=== PATIENT | female | born 1990 | race African-American/Black ===

== ENCOUNTER 2016-08-09 09:51 | Emergency (ER) | payer MEDICAID ==
[~2016-08-09] VITALS: Ht 154.9 cm; Wt 82.0 kg
[~2016-08-09 09:51] MED LIST: AMLO5TAB22 PO; LABE100 PO; MIREIUD IU; NAPR-576 PO
[2016-08-09 09:53] VITALS: BP 144/74; PULSE 91; RESP 15; TEMP 98.8; O2SAT 98
--- NOTE | 2016-08-09 10:05 | PD ---
HPI Chief Complaint: Cold / Flu Symptoms Time Seen by Provider: 10:05 Travel History International Travel<30 days: No Contact w/Intl Traveler<30days: No Traveled to known affect area: No History of Present Illness HPI 25-year-old Afro-[place] female coming in with sudden onset fever of 102 last evening headache, sore throat, ear pain, congestion, and generalized muscle aches and pains. Patient has some nausea but no vomiting. No diarrhea. Patient has no significant shortness of breath or chest pain. Patient has been taking Tylenol with improvement of her temperature but overall feels worse today than yesterday. Patient has no one sick in the home. Patient has no allergies to medications. She is allergic to bananas. PFSH Past Medical History Cancer: No Cardiovascular Problems: Yes (HTN) Diminished Hearing: No Endocrine: No Gastrointestinal Disorders: No Genitourinary: No Hypertension: Yes (PRE-ECLAMPSIA) Immune Disorder: No Neurologic: No Psychiatric: No Reproductive: No Respiratory: No ?: Not LMP: 08/09/16 : 3 Para: 2 Miscarriage: 1 Past Surgical History Section: Yes (2) Gynecologic Surgery: Yes (2 C-SECTIONS) Other Surgery: Yes Social History Alcohol Use: No Tobacco Use: No (QUIT 10/2014) Substance Use: No Allergies-Medications (Allergen,Severity, Reaction): Uncoded Allergies: bananas (Allergy, Mild, 11/06/14) Reported Meds & Prescriptions Reported Meds & Active Scripts Active Tamiflu (Oseltamivir Phosphate) 75 Mg Cap 75 Mg PO BID 5 Days Review of Systems Except as stated in HPI: all other systems reviewed are Neg General / Constitutional: Positive: Fever, Chills Eyes: No: Visual changes HENT: Positive: Headaches, Sore Throat, Rhinitis, Rhinorrhea, Congestion, Earache, No: Vertigo, Lightheadedness, Neck Stiffness, Neck Pain, Ear Discharge Cardiovascular: No: Chest Pain or Discomfort Respiratory: Positive: Cough, No: Shortness of Breath, Wheezing, Sneezing, Orthopnea, Pleuritic Pain Gastrointestinal: Positive: Nausea, Loss of Appetite, No: Vomiting, Diarrhea, Abdominal Pain Genitourinary: No: Urgency, Frequency, Dysuria, Nocturia, Hematuria Musculoskeletal: No: Pain Skin: No Rash Neurologic: No: Weakness Psychiatric: No: Depression Endocrine: No: Polydipsia Hematologic/Lymphatic: No: Easy Bruising Physical Exam Narrative GENERAL: Patient appears ill but not septic. SKIN: Warm and dry. Normal color. Normal turgor. Mild diaphoresis noted. HEAD: Atraumatic. Normocephalic. EYES: Pupils equal and round. No scleral icterus. No injection or drainage. ENT: No nasal bleeding or discharge. Mucous membranes pink and moist. TMs are clear bilaterally. No sinus tenderness. NECK: Trachea midline. No JVD. CARDIOVASCULAR: Regular rate and rhythm. RESPIRATORY: No accessory muscle use. Clear to auscultation. Breath sounds equal bilaterally. GASTROINTESTINAL: Abdomen soft, non-tender, nondistended. Hepatic and splenic margins not palpable. MUSCULOSKELETAL: Extremities without clubbing, cyanosis, or edema. No obvious deformities. NEUROLOGICAL: Awake and alert. No obvious cranial nerve deficits. Motor grossly within normal limits. Five out of 5 muscle strength in the arms and legs. Normal speech. PSYCHIATRIC: Appropriate mood and affect; insight and judgment normal. Data Data Last Documented VS Vital Signs Date Time Temp Pulse Resp B/P Pulse Ox O2 Delivery O2 Flow Rate FiO2 08/09/16 09:53 98.8 91 15 144/74 98 Orders Group A Rapid Strep Screen (08/09/16 10:11) Influenzae A/B Antigen (08/09/16 10:11) Strep Culture (Group A) (08/09/16 10:15) MDM Medical Decision Making Medical Screen Exam Complete: Yes Emergency Medical Condition: Yes Differential Diagnosis Strep pharyngitis. Upper respiratory infection. Viral illness. Influenza. Narrative Course Patient is medically stable at time of exam. Rapid strep was sent to the lab. Influenza test is sent to the lab. Rapid strep is negative. Patient is positive for influenza A. Patient is given a prescription for Tamiflu 75 mg twice a day 5 days. Patient is given a prescription for Tylenol and ibuprofen as well. Patient is given a prescription for Zofran for nausea. Patient is given a work note for the next 5 days off or until fever free. Patient should follow with her primary care physician or return to emergency Department with worsening symptoms as needed. Diagnosis Primary Impression: Influenza A (H1N1) Referrals: Primary Care Physician Patient Instructions: General Instructions, H1N1 Influenza (ED) Departure Forms: Work Release Enter return to work date: Aug 14, 2016 Special Instructions: No work until fever free due to positive influenza test. Additional Instructions: Rapid strep is negative. Patient is positive for influenza A. Patient is given a prescription for Tamiflu 75 mg twice a day 5 days. Patient is given a prescription for Tylenol and ibuprofen as well. Patient is given a prescription for Zofran for nausea. Patient is given a work note for the next 5 days off or until fever free. Patient should follow with her primary care physician or return to emergency Department with worsening symptoms as needed. Med/Other Pt SpecificInfo: Prescription(s) given Scripts Oseltamivir (Tamiflu)75 Mg Cap75 Mg PO BID 5 Days Ref 0 Prov:Fernanda Mariscal DO 08/09/16 Disposition: 01 DISCHARGE HOME Condition: Stable Tio Rushing Aug 09, 2016 10:05
[2016-08-09] MEDS ORDERED: OSEL75 PO (11:01)
[2016-08-09] MEDS ORDERED: IBUP-232 PO (11:09)
[2016-08-09] MEDS ORDERED: ZOFR4TAB PO (11:09)
[2016-08-09] MEDS ORDERED: EXTR500C PO (11:09)
== END 2016-08-09 11:32 | disposition home or self-care (01) ==
LOC: NEPB 09:51
DX: J10.1 Influenza due to other identified influenza virus with other respiratory manifestations (principal)
CPT/HCPCS: 87081; 87804; 87880; 99283

== ENCOUNTER 2017-01-31 13:29 | Emergency (ER) | payer MEDICAID ==
[~2017-01-31] VITALS: Ht 154.9 cm; Wt 75.0 kg
[~2017-01-31 13:29] MED LIST changes: -AMLO5TAB22 PO; +EXTR500C PO; +IBUP-232 PO; -LABE100 PO; -MIREIUD IU; -NAPR-576 PO; +OSEL75 PO; +ZOFR4TAB PO
[2017-01-31 13:31] VITALS: BP 136/88; PULSE 114; RESP 18; TEMP 98.9; O2SAT 100
--- NOTE | 2017-01-31 13:48 | PD ---
Physical Exam Date Seen by Provider: Jan 31, 2017 Time Seen by Provider: 13:44 Narrative 26 yo female here for RLQ pain. Has had this for a few days. No chest pain or SOB. Pain is cramping. Vaginal discharge noted per patient. Vitals are stable in triage. Awaiting bed placement. Data Data Last Documented VS Vital Signs Date Time Temp Pulse Resp B/P Pulse Ox O2 Delivery O2 Flow Rate FiO2 01/31/17 13:31 98.9 114 18 136/88 100 MDM Medical Record Reviewed: Yes Supervised Visit with PETROS: Michael Andrews Jan 31, 2017 13:48
[2017-01-31] MEDS ORDERED: KETOROLAC TROMETHAMINE 30 MG/ML (IVP) VIAL IV PUSH ONE (14:30)
[2017-01-31 15:26] LABS: AUTOMATED NEUTROPHIL # 2.2 TH/MM3 (1.8-7.7); BASOPHIL % 0.7 % (0.0-2.0); EOSINOPHIL % 0.9 % (0.0-4.0); HEMO FLAGS DIFF FINAL; LYMPH % 50.6 % (9.0-44.0); LYMPHOCYTE # 2.6 TH/MM3 (1.0-4.8); MEAN CELL VOLUME 89.7 FL (80.0-100.0); MEAN CORPUSCULAR HEMOGLOBIN 30.9 PG (27.0-34.0); MEAN CORPUSCULAR HGB CONC 34.4 % (32.0-36.0); NEUT % 41.8 % (16.0-70.0); PLATELET COUNT 297 TH/MM3 (150-450); RED BLOOD COUNT 4.68 MIL/MM3 (4.00-5.30); RED CELL DISTRIBUTION WIDTH 13.4 % (11.6-17.2); WHITE BLOOD COUNT 5.2 TH/MM3 (4.0-11.0)
--- NOTE | 2017-01-31 15:41 | RADRPT ---
EXAM DATE/TIME: 01/31/2017 14:22 [facility] COMPARISON: No previous studies available for comparison. INDICATIONS : Right pelvic pain. MEDICAL HISTORY : Hypertension. SURGICAL HISTORY : section. ENCOUNTER: Subsequent ACUITY: 4-6 months PAIN SCORE: 4/10 LOCATION: Bilateral pelvis MEASUREMENTS: UTERUS: 11.0 x 5.4 x 5.1 cm ENDOMETRIAL STRIPE: 10 mm RIGHT OVARY: 4.7 x 4.2 x 3.6 cm LEFT OVARY: 4.0 x 2.5 x 1.8 cm FINDINGS: There is a right ovarian cyst measuring 3.5 x 3.3 x 2.4 cm. There is some free fluid within the cul-d e-sac. The left ovary is unremarkable. An intrauterine device is noted within the endometrial cavity. Nabothian cysts are noted. CONCLUSION: 3.5 cm right ovarian cyst. Some free fluid within the cul-de-sac. IUD appears to be i n position within the endometrium. Ricardo Tuttle MD on January 31, 2017 at 15:37 Board Certified Radiologist. This report was verified electronically.
[2017-01-31 15:50] LABS: ANION GAP 8 MEQ/L (5-15); AST (GOT) 14 U/L (15-37); BICARBONATE 26.3 MEQ/L (21.0-32.0); BLOOD UREA NITROGEN 10 MG/DL (7-18); CHLORIDE 106 MEQ/L (98-107); GLOMERULAR FILTRATION RATE 87 ML/MIN (>89); POTASSIUM 3.4 MEQ/L (3.5-5.1); SODIUM (NA) 140 MEQ/L (136-145)
[2017-01-31 16:00] LABS: ALKALINE PHOSPHATASE 75 U/L (45-117); ALT (GPT) 19 U/L (10-53); TOTAL BILIRUBIN ADULT 0.5 MG/DL (0.2-1.0)
[2017-01-31 16:12] LABS: BLOOD, URINE NEG (NEG); COMMENT (UR) CULT NOT INDICATED; CULTURE IF INDICATED CULT NOT INDICATED; GLUCOSE,URINE NEG (NEG); KETONE, URINE NEG (NEG); MUCUS URINE FEW /lpf (OCC); NITRITE,URINE NEG (NEG); PH, URINE 7.5 (5.0-8.5); SQUAMOUS EPITHELIAL CELL URINE 2 /hpf (0-5); URINE COLOR YELLOW (YELLW/STRAW)
[2017-01-31] MEDS ORDERED: cefTRIAXone 250 MG VIAL IM ONE (16:15)
[2017-01-31] MEDS ORDERED: LIDOCAINE HCL 1% 50 ML VIAL IM ONE (16:15)
[2017-01-31] MEDS ORDERED: AZITHROMYCIN PWD FOR SUSP 1 GM PACKET PO ONE (16:15)
[2017-01-31] MEDS ORDERED: NAPR500T PO (16:45)
[2017-01-31] MEDS ORDERED: DOXY100C PO (16:45)
--- NOTE | 2017-01-31 16:46 | PD ---
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 The symptoms have been constant, moderate severity with no associated nausea, vomiting, fevers, chills, dysuria or diarrhea. She says her partner cheated on her and she is concerned she may have an infection. She does have an IUD. PFSH Past Medical History Cancer: No Cardiovascular Problems: Yes (HTN) Diminished Hearing: No Endocrine: No Gastrointestinal Disorders: No Genitourinary: No Hypertension: Yes (PRE-ECLAMPSIA) Immune Disorder: No Implanted Vascular Access Dvce: No Neurologic: No Psychiatric: No Reproductive: No Respiratory: No ?: Not LMP: 01/07/17 : 3 Para: 2 Miscarriage: 1 Past Surgical History Section: Yes (2) Gynecologic Surgery: Yes (2 C-SECTIONS) Other Surgery: Yes Social History Alcohol Use: No Tobacco Use: No (QUIT 10/2014) Substance Use: No Allergies-Medications (Allergen,Severity, Reaction): Uncoded Allergies: bananas (Allergy, Mild, 11/06/14) Reported Meds & Prescriptions Reported Meds & Active Scripts Active Review of Systems Except as stated in HPI: all other systems reviewed are Neg Physical Exam Narrative GENERAL:Well appearing, no acute distress SKIN: Focused skin assessment warm and dry. HEAD: Atraumatic. Normocephalic. EYES: Pupils equal and round. No injection or drainage. ENT: Moist mucous membranes NECK: Trachea midline. CARDIOVASCULAR: Regular rate and rhythm. No murmur appreciated. RESPIRATORY: Clear to auscultation. Breath sounds equal bilaterally. GASTROINTESTINAL: Abdomen soft, mildly tender to palpation in the right lower quadrant with no rebound or guarding. : Scant white discharge in the vault with no cervical motion tenderness, right adnexal tenderness is present MUSCULOSKELETAL: No obvious deformities. NEUROLOGICAL: Awake and alert. No obvious cranial nerve deficits. Moving all extremities. PSYCHIATRIC: Appropriate mood and affect; insight and judgment normal. Data Data Last Documented VS Vital Signs Date Time Temp Pulse Resp B/P Pulse Ox O2 Delivery O2 Flow Rate FiO2 01/31/17 13:31 98.9 114 18 136/88 100 Orders Complete Blood Count With Diff (01/31/17 14:18) Comprehensive Metabolic Panel (01/31/17 14:18) Urinalysis - C+S If Indicated (01/31/17 14:18) Ed Urine Pregnancytest Poc (01/31/17 14:18) ^ Insert Iv (01/31/17 14:18) Gc And Chlamydia Pcr (01/31/17 14:18) Wet Prep Profile (01/31/17 14:18) Ketorolac Inj (Toradol Inj) (01/31/17 14:30) Us Pelvis Comp W Transvaginal (01/31/17 ) Azithromycin Powd Pack (Zithromax Powd P (01/31/17 16:15) Ceftriaxone Inj (Rocephin Inj) (01/31/17 16:15) Lidocaine 1% Inj (50 Ml) (Xylocaine 1% I (01/31/17 16:15) Labs Laboratory Tests Test 01/31/17 01/31/17 15:10 15:58 White Blood Count 5.2 TH/MM3 Red Blood Count 4.68 MIL/MM3 Hemoglobin 14.5 GM/DL Hematocrit 42.0 % Mean Corpuscular Volume 89.7 FL Mean Corpuscular Hemoglobin 30.9 PG Mean Corpuscular Hemoglobin 34.4 % Concent Red Cell Distribution Width 13.4 % Platelet Count 297 TH/MM3 Mean Platelet Volume 7.4 FL Neutrophils (%) (Auto) 41.8 % Lymphocytes (%) (Auto) 50.6 % Monocytes (%) (Auto) 6.0 % Eosinophils (%) (Auto) 0.9 % Basophils (%) (Auto) 0.7 % Neutrophils # (Auto) 2.2 TH/MM3 Lymphocytes # (Auto) 2.6 TH/MM3 Monocytes # (Auto) 0.3 TH/MM3 Eosinophils # (Auto) 0.0 TH/MM3 Basophils # (Auto) 0.0 TH/MM3 CBC Comment DIFF FINAL Differential Comment Urine Color YELLOW Urine Turbidity HAZY Urine pH 7.5 Urine Specific [place] 1.031 Urine Protein TRACE mg/dL Urine Glucose (UA) NEG mg/dL Urine Ketones NEG mg/dL Urine Occult Blood NEG Urine Nitrite NEG Urine Bilirubin NEG Urine Urobilinogen LESS THAN 2.0 MG/DL Urine Leukocyte Esterase NEG Urine RBC LESS THAN 1 /hpf Urine WBC 1 /hpf Urine Squamous Epithelial 2 /hpf Cells Urine Mucus FEW /lpf Microscopic Urinalysis Comment CULT NOT INDICATED Sodium Level 140 MEQ/L Potassium Level 3.4 MEQ/L Chloride Level 106 MEQ/L Carbon Dioxide Level 26.3 MEQ/L Anion Gap 8 MEQ/L Blood Urea Nitrogen 10 MG/DL Creatinine 0.93 MG/DL Estimat Glomerular Filtration 87 ML/MIN Rate Random Glucose 92 MG/DL Calcium Level 9.3 MG/DL Total Bilirubin 0.5 MG/DL Aspartate Amino Transf 14 U/L (AST/SGOT) Alanine Aminotransferase 19 U/L (ALT/SGPT) Alkaline Phosphatase 75 U/L Total Protein 8.0 GM/DL Albumin 4.4 GM/DL Clue Cells (Wet Prep) NONE SEEN Vaginal Trichomonas (Wet Prep) NONE SEEN Vaginal Yeast (Wet Prep) NONE SEEN MDM Medical Decision Making Medical Screen Exam Complete: Yes Emergency Medical Condition: Yes Interpretation(s) Afebrile, tachycardic, normotensive No leukocytosis Electrolytes are reassuring Urinalysis is negative for infection Clue cells are negative, Trichomonas is negative Differential Diagnosis Pelvic inflammatory disease, tubo-ovarian abscess, ectopic , ovarian cyst Narrative Course This is a 26-year-old female who presents to the emergency department with subacute right sided pelvic pain with some vaginal discharge and concern that her partner cheated on her. She has a fairly benign exam. Pelvic ultrasound was obtained which demonstrates a 3 cm right ovarian cyst which may be the etiology of some of the patient's symptoms. Her pelvic exam was fairly benign given her right adnexal tenderness, her IUD, and her concern for possible STD exposure I think it's reasonable to treat her empirically for possible sexually transmitted disease and early PID. Patient will be discharged home. Diagnosis Primary Impression: Ovarian cyst Patient Instructions: General Instructions Additional Instructions: If you develop fever, chills, severe abdominal pain, persistent vomiting or inability to eat return to the emergency department. Your pelvic exam today did not include a Pap smear. It is important to followup with a county attorney on a yearly basis to be tested for cervical cancer as we do not do that from the emergency department. If there is a concern that you have sexually transmitted disease, your partner should be tested. You should followup with your county attorney or with the health department to get tested for other sexually transmitted diseases like HIV and syphilis, as we do not test for these in the emergency department Med/Other Pt SpecificInfo: Prescription(s) given Scripts Naproxen 500 Mg [id number] Mg PO BID PRN (PAIN SCALE 4 TO 10) #20 TAB Prov:Marilee Laureano MD 01/31/17 Doxycycline Hyclate 100 Mg [id number] Mg PO BID #28 CAP Ref 0 Prov:Marilee Laureano MD 01/31/17 Disposition: 01 DISCHARGE HOME Condition: Stable Marilee Laureano MD Jan 31, 2017 16:46
[2017-01-31 19:52] LABS: CHLAMYDIA PCR NOT DETECTED (NOT DETECT); NEISSERIA PCR NOT DETECTED (NOT DETECT)
[2017-02-10] MEDS ORDERED: MIREIUD I-UTERINE (10:14)
== END 2017-01-31 16:55 | disposition home or self-care (01) ==
LOC: NEPD 13:29
DX: N83.201 Unspecified ovarian cyst, right side (principal); R00.0 Tachycardia, unspecified; I10 Essential (primary) hypertension; Z87.891 Personal history of nicotine dependence
CPT/HCPCS: 76830; 76856; 80053; 81001; 84703; 85025; 87210; 87491; 87591; 96372; 96374; 99285; J0696; J1885

== ENCOUNTER 2017-06-15 09:38 | Emergency (ER) | payer MEDICAID ==
[~2017-06-15] VITALS: Ht 154.9 cm; Wt 70.0 kg
[~2017-06-15 09:38] MED LIST changes: +DOXY100C PO; -EXTR500C PO; -IBUP-232 PO; +METR1TAB76 PO; +MIREIUD I-UTERINE; +NAPR500T2 PO; -OSEL75 PO; -ZOFR4TAB PO
[2017-06-15 09:39] VITALS: BP 137/96; PULSE 107; RESP 16; TEMP 98.7; O2SAT 98
[2017-06-15] MEDS ORDERED: CYCL5TAB PO (10:02)
--- NOTE | 2017-06-15 10:11 | PD ---
HPI Chief Complaint: Complaint Time Seen by Provider: 09:44 Travel History International Travel<30 days: No Contact w/Intl Traveler<30days: No Traveled to known affect area: No History of Present Illness HPI 18-year-old female presents to emergency department wanting of lower pelvic pain when urinating. Patient states that she has mild dysuria without hematuria. Patient denies fever, chills, chest pain, shortness of breath, abdominal pain, back pain, nausea, vomiting, diarrhea. Patient states she has an IUD in place and is currently on her menstrual cycle. Denies risky sexual behavior and says she is monogamous. Denies vaginal discharge. PFSH Past Medical History Cancer: No Cardiovascular Problems: Yes (HTN) Diminished Hearing: No Endocrine: No Gastrointestinal Disorders: No Genitourinary: No Hypertension: Yes (PRE-ECLAMPSIA) Immune Disorder: No Implanted Vascular Access Dvce: No Neurologic: No Psychiatric: No Reproductive: No Respiratory: No Immunizations Current: Yes Tetanus Vaccination: Unknown Influenza Vaccination: No ?: Not LMP: now : 3 Para: 2 Miscarriage: 1 Past Surgical History Section: Yes (2) Gynecologic Surgery: Yes (2 C-SECTIONS) Other Surgery: Yes Social History Alcohol Use: No Tobacco Use: No (QUIT 10/2014) Substance Use: No Allergies-Medications (Allergen,Severity, Reaction): Uncoded Allergies: bananas (Allergy, Mild, 11/06/14) Reported Meds & Prescriptions Reported Meds & Active Scripts Active Reported Flexeril (Cyclobenzaprine HCl) 5 Mg Tab 5 Mg PO TID Mirena (Levonorgestrel (Iud)) 20 Mcg/24 Hr Iud 52 Mg I-UTERINE ONCE Review of Systems Except as stated in HPI: all other systems reviewed are Neg Physical Exam Narrative GENERAL: Well-developed well-nourished in mild distress SKIN: Focused skin assessment warm/dry. HEAD: Atraumatic. Normocephalic. EYES: Pupils equal and round. No scleral icterus. No injection or drainage. ENT: No nasal bleeding or discharge. Mucous membranes pink and moist. NECK: Trachea midline. No JVD. CARDIOVASCULAR: Regular rate and rhythm. No murmur appreciated. RESPIRATORY: No accessory muscle use. Clear to auscultation. Breath sounds equal bilaterally. GASTROINTESTINAL: Abdomen soft, non-tender, nondistended. Hepatic and splenic margins not palpable. MUSCULOSKELETAL: No obvious deformities. No clubbing. No cyanosis. No edema. NEUROLOGICAL: Awake and alert. No obvious cranial nerve deficits. Motor grossly within normal limits. Normal speech. PSYCHIATRIC: Appropriate mood and affect; insight and judgment normal. Data Data Last Documented VS Vital Signs Date Time Temp Pulse Resp B/P (MAP) Pulse Ox O2 Delivery O2 Flow Rate FiO2 06/15/17 09:39 98.7 107 16 137/96 (110) 98 Orders Orders Urinalysis - C+S If Indicated (06/15/17 09:46) Urine Culture (06/15/17 10:00) Labs Laboratory Tests Test 06/15/17 10:00 Urine Color YELLOW Urine Turbidity CLEAR Urine pH 5.5 Urine Specific [place] 1.019 Urine Protein TRACE mg/dL Urine Glucose (UA) NEG mg/dL Urine Ketones NEG mg/dL Urine Occult Blood LARGE Urine Nitrite NEG Urine Bilirubin NEG Urine Urobilinogen LESS THAN 2.0 MG/DL Urine Leukocyte Esterase MOD Urine RBC 160 /hpf Urine WBC 18 /hpf Urine Squamous Epithelial Cells 5 /hpf Urine Bacteria OCC /hpf Urine Mucus FEW /lpf Microscopic Urinalysis Comment CULTURE INDICATED MDM Medical Decision Making Medical Screen Exam Complete: Yes Emergency Medical Condition: Yes Differential Diagnosis UTI versus cystitis versus pyelonephritis Narrative Course 18-year-old female presents to emergency department wanting of lower pelvic pain when urinating. Patient states that she has mild dysuria without hematuria. Patient denies fever, chills, chest pain, shortness of breath, abdominal pain, back pain, nausea, vomiting, diarrhea. Patient states she has an IUD in place and is currently on her menstrual cycle. Denies risky sexual behavior and says she is monogamous. Denies vaginal discharge. Vital signs stable Physical exam- mild TTP over suprapubic region, no CVA tenderness Consistent with urinary tract infection will treat with Macrobid. Patient advised follow-up with primary care physician. Return to emergency for worsening symptoms. Diagnosis Primary Impression: Urinary tract infection Qualified Codes: N30.00 - Acute cystitis without hematuria Referrals: [facility] Additional Instructions: Follow-up with primary care physician once 2-3 days. If you did not have a primary care physician follow-up with his [facility] If your symptoms persist or worsen return to the emergency department Take all medications as prescribed Scripts Nitrofurantoin Monohydrate Macrocrystals (Macrobid) 100 Mg Cap 100 MG PO BID for Infection for 7 Days, #14 CAP 0 Refills Prov: DaveySilvanaFernanda L DO 06/15/17 Disposition: 01 DISCHARGE HOME Condition: Stable Brenna Kline Jun 15, 2017 10:11
[2017-06-15 10:27] LABS: BACTERIA, URINE OCC /hpf; BLOOD, URINE LARGE (NEG); COMMENT (UR) CULTURE INDICATED; CULTURE IF INDICATED CULTURE INDICATED; GLUCOSE,URINE NEG (NEG); KETONE, URINE NEG (NEG); MUCUS URINE FEW /lpf (OCC); NITRITE,URINE NEG (NEG); PH, URINE 5.5 (5.0-8.5); SQUAMOUS EPITHELIAL CELL URINE 5 /hpf (0-5); URINE COLOR YELLOW (YELLW/STRAW)
[2017-06-15] MEDS ORDERED: MACR100C2 PO (10:47)
== END 2017-06-15 10:55 | disposition home or self-care (01) ==
LOC: NEPD 09:38
DX: N30.00 Acute cystitis without hematuria (principal); B96.89 Other specified bacterial agents as the cause of diseases classified elsewhere
CPT/HCPCS: 81001; 87086; 99284